=== PATIENT | male | born 1960 ===

== ENCOUNTER 2022-04-13 06:15 | Emergency (ER) | payer OTHER, SELFPAY ==
[2022-04-13 06:26] VITALS: BP 196/99; PULSE 78; RESP 20; TEMP 36.9; O2SAT 99; BMI 28.7
== END 2022-04-13 07:30 | disposition left against medical advice (07) ==
PROVIDERS: Emergency Provider Emergency Medicine
DX: R21 Rash and other nonspecific skin eruption (principal)
CPT/HCPCS: 99281